=== PATIENT | female | born 1970 | race Caucasian/White ===

== ENCOUNTER 2018-03-01 15:39 | Emergency (ER) | payer OTHER ==
[~2018-03-01] VITALS: Ht 175.3 cm; Wt 95.0 kg
[2018-03-01 15:49] VITALS: BP 121/74
[2018-03-01] MEDS ORDERED: ALBUTEROL/IPRATROPIUM 2.5MG/0.5MG, 3 ML NPPB SCH (16:00)
[2018-03-01] MEDS ORDERED: ALBUTEROL SULFATE 2.5MG/0.5ML ONE (16:01)
[2018-03-01] MEDS ORDERED: ALBUTEROL/IPRATROPIUM 2.5MG/0.5MG, 3 ML ONE (16:01)
[2018-03-01] MEDS ORDERED: ALBUTEROL SULFATE 2.5 MG/3 ML NPPB ONE (17:00)
[2018-03-01] MEDS ORDERED: ALBUTEROL/IPRATROPIUM 2.5MG/0.5MG, 3 ML NEB ONE (17:00)
== END 2018-03-01 17:11 | disposition home or self-care (01) ==
LOC: ED 16:00
DX: J45.41 Moderate persistent asthma with (acute) exacerbation (principal)
CPT/HCPCS: 71046; 94640; 99284; J7512; J7613; J7620

== ENCOUNTER 2018-05-11 21:54 | Emergency (ER) | payer OTHER ==
[~2018-05-11] VITALS: Ht 177.8 cm; Wt 90.5 kg
[2018-05-11] MEDS ORDERED: METHOCARBAMOL 750 MG TABLET ONE (22:44)
[2018-05-11] MEDS ORDERED: KETOROLAC 30 MG/1 ML ONE (22:44)
[2018-05-11] MEDS ORDERED: METHOCARBAMOL 750 MG TABLET PO ONE (23:00)
[2018-05-11] MEDS ORDERED: KETOROLAC 30 MG/1 ML IM ONE (23:00)
[2018-05-11 23:13] VITALS: BP 110/74
== END 2018-05-11 23:15 | disposition home or self-care (01) ==
LOC: ED 22:30
DX: M54.5 Low back pain (principal); G89.29 Other chronic pain; J45.909 Unspecified asthma, uncomplicated; Z87.891 Personal history of nicotine dependence; Z98.51 Tubal ligation status
CPT/HCPCS: 96372; 99283; J1885

== ENCOUNTER 2018-06-22 19:21 | Emergency (ER) | payer OTHER ==
[~2018-06-22] VITALS: Ht 177.8 cm; Wt 88.0 kg
[2018-06-22 19:24] VITALS: BP 116/61
[2018-06-22] MEDS ORDERED: ALBUTEROL/IPRATROPIUM 2.5MG/0.5MG, 3 ML NPPB ONE (19:30)
== END 2018-06-22 20:35 | disposition home or self-care (01) ==
LOC: ED 20:29
DX: J45.41 Moderate persistent asthma with (acute) exacerbation (principal); F17.200 Nicotine dependence, unspecified, uncomplicated
CPT/HCPCS: 71046; 94640; 99284; J7620

== ENCOUNTER 2018-07-31 11:08 | Emergency (ER) | payer SELFPAY ==
[~2018-07-31] VITALS: Ht 177.8 cm; Wt 83.9 kg
[2018-07-31] MEDS ORDERED: ALBUTEROL/IPRATROPIUM 2.5MG/0.5MG, 3 ML ONE ×2 (12:09→12:37)
[2018-07-31] MEDS: ALBUTEROL/IPRATROPIUM 2.5MG/0.5MG, 3 ML NPPB SCH ×2 (12:12→12:39)
[2018-07-31 13:06] VITALS: BP 118/70
== END 2018-07-31 13:24 | disposition home or self-care (01) ==
LOC: ED 11:44
DX: J45.41 Moderate persistent asthma with (acute) exacerbation (principal)
CPT/HCPCS: 71045; 93005; 94640; 99284; J7512; J7620

== ENCOUNTER 2018-09-01 08:13 | Emergency (ER) | payer OTHER ==
[~2018-09-01] VITALS: Ht 177.8 cm; Wt 87.6 kg
--- NOTE | 2018-09-01 08:18 | NUR ---
HERMILA RN: PT IN RESTROOM AT THIS TIME. NIL.
--- NOTE | 2018-09-01 08:24 | NUR ---
LOCKSTITCH TUNNEL ELASTIC OPERATOR: MILLWRIGHT HELPER TO CALL RT FOR PT. ERP NOTIFIED OF PT WHEEZING AND VS.
--- NOTE | 2018-09-01 08:30 | NUR ---
PT C/O COUGHING AND WHEEZING. STATES SHE IS OUT OF SINGULAIR AND HER MEDICATION FOR NEBULIZER MACHINE. PT IS ON ALL MONITORS WITH AUDIBLE ALARMS. O2 SAT IS 95 % ON RA AT THIS TIME.
[2018-09-01] MEDS ORDERED: ALBUTEROL/IPRATROPIUM 2.5MG/0.5MG, 3 ML NPPB SCH (09:00)
[2018-09-01] MEDS ORDERED: ALBUTEROL/IPRATROPIUM 2.5MG/0.5MG, 3 ML ONE (09:04)
[2018-09-01 09:19] LABS: BASOPHILS # (AUTO) 0.08 x10^3/uL (0-0.1); BASOPHILS % (AUTO) 2 % (0-1); EOSINOPHILS % (AUTO) 10 % (1-7); LYMPHOCYTES # (AUTO) 1.66 x10^3/uL (1-3.4); LYMPHOCYTES % (AUTO) 33 % (22-44); MD NO; MEAN CORPUSCULAR HEMOGLOBIN 25.4 pg (27.0-34.8); MEAN CORPUSCULAR HGB CONC 31.9 g/dL (32.4-35.8); MEAN CORPUSCULAR VOLUME 79.7 fL (80-100); MEAN PLATELET VOLUME 9.1 fL (7.4-10.4); MONOCYTES # (AUTO) 0.49 x10^3/uL (0.2-0.8); MONOCYTES % (AUTO) 10 % (2-9); NEUTROPHILS # (AUTO) 2.35 x10^3/uL (1.8-6.8); NEUTROPHILS % (AUTO) 46 % (42-75); PLATELET COUNT 329 x10^3/uL (130-400); RED BLOOD COUNT 4.48 x10^6/uL (3.82-5.3); RED CELL DISTRIBUTION WIDTH 18.5 % (9.6-15.2)
[2018-09-01 09:29] LABS: ALBUMIN 3.8 g/dL (3.4-5.0); ANION GAP 8 mmol/L (5-15); CALCIUM 8.5 mg/dL (8.5-10.1); CHLORIDE 111 mmol/L (98-107)
[2018-09-01 09:36] LABS: CREATININE 0.61 mg/dL (0.55-1.02)
[2018-09-01] MEDS ORDERED: ALBU18HF INH (09:54)
[2018-09-01 10:06] VITALS: BP 109/76
--- NOTE | 2018-09-01 10:06 | NUR ---
VSS. WAITING FOR DISPOSITION BY . PT UPDATED ON POC.
== END 2018-09-01 11:15 | disposition home or self-care (01) ==
LOC: ED 09:19
DX: J45.41 Moderate persistent asthma with (acute) exacerbation (principal); R06.00 Dyspnea, unspecified
CPT/HCPCS: 36415; 71046; 80048; 82040; 83880; 85025; 93005; 94640; 99284; J7512; J7620

== ENCOUNTER 2018-09-23 17:24 | Emergency (ER) | payer OTHER ==
[~2018-09-23] VITALS: Ht 175.3 cm; Wt 85.3 kg
[~2018-09-23 17:24] MED LIST: ALBU18HF INH
--- NOTE | 2018-09-23 17:32 | NUR ---
LUNCH RN: PT BIB EMS FOR INCREASED WOB. PT REPORTS SHE HAS BEEN USING HER NEBULIZER MUCH MORE OFTEN AT HOME AND STILL CONTINUETO GET WORSE. PT REPORTS SHE HAS HAD A PRODUCTIVE COUGH FOR 1 MONTH. PT WAS GIVEN 2 DUO NEBS AND 2 ALBUTEROL TREATMENTS. PT REPORTS SHE DID 3 PRIOR TO THE ARRIVAL OF EMS. PT WAS FOUND TO BE SPEAKING IN BROKEN SENTANCES AND ANXIOUS PER EMS. PT CONNECTED TO ALL MONITORS AND CALL LIGHT IN REACH. RA SAT ABOVE 90% WITH NO INCREASED WOB. EXPIRATORY WHEEZING AND DIMINSHED BREATH SOUNDS APPRECIATED THROUGHOUT LUNGS. AWAITING FURTHER ORDERS.
--- NOTE | 2018-09-23 17:47 | NUR ---
PT MEDICATED PER OCT. RT TREATMENT COMPLETE. LABS DRAWN. CALL LIGHT WITHIN REACH. NO NEEDS AT THIS TIME. AWAITING RESULTS.
[2018-09-23] MEDS ORDERED: ALBUTEROL/IPRATROPIUM 2.5MG/0.5MG, 3 ML ONE (17:56)
[2018-09-23 18:00] LABS: BASOPHILS # (AUTO) 0.07 x10^3/uL (0-0.1); BASOPHILS % (AUTO) 2 % (0-1); EOSINOPHILS # (AUTO) 0.73 x10^3/uL (0-0.4); EOSINOPHILS % (AUTO) 15 % (1-7); LYMPHOCYTES % (AUTO) 28 % (22-44); MD NO; MEAN CORPUSCULAR HEMOGLOBIN 25.8 pg (27.0-34.8); MEAN CORPUSCULAR HGB CONC 32.2 g/dL (32.4-35.8); MEAN PLATELET VOLUME 9.2 fL (7.4-10.4); MONOCYTES % (AUTO) 6 % (2-9); NEUTROPHILS # (AUTO) 2.53 x10^3/uL (1.8-6.8); NEUTROPHILS % (AUTO) 50 % (42-75); PLATELET COUNT 300 x10^3/uL (130-400); RED BLOOD COUNT 4.63 x10^6/uL (3.82-5.3); RED CELL DISTRIBUTION WIDTH 18.6 % (9.6-15.2)
[2018-09-23] MEDS ORDERED: ALBUTEROL/IPRATROPIUM 2.5MG/0.5MG, 3 ML NPPB SCH (18:00)
[2018-09-23 18:06] LABS: ALBUMIN 3.9 g/dL (3.4-5.0); ANION GAP 5 mmol/L (5-15); CALCIUM 8.8 mg/dL (8.5-10.1); CHLORIDE 109 mmol/L (98-107); CREATININE 0.79 mg/dL (0.55-1.02)
[2018-09-23 18:13] VITALS: BP 123/76
--- NOTE | 2018-09-23 18:13 | NUR ---
PT RESTING IN ROOM. NO NEEDS AT THIS TIME. VSS. AWAITING RESULTS.
--- NOTE | 2018-09-23 18:14 | NUR ---
ALL RESULTS BACK AT THIS TIME. CHART UP FOR RECHECK.
[2018-09-23] MEDS ORDERED: BENZONATATE 100 MG CAPSULE ONE (18:18)
--- NOTE | 2018-09-23 19:13 | NUR ---
PT BECAME VERY UPSET WHEN SHE WAS NOT PROVIDED WITH REQUESTED MEDICATION, PHENERGAN WITH CODEINE. PT WAS OFFERED TESSALON FOR HER COUGH, BUT REFUSED THE MEDICATION. MD WAS NOTIFIED OF PT REQUEST AND THEN PT WAS DISCHARGED. WHEN THIS RN ENTERED PTS ROOM TO GIVE DISCHARGE PAPERWORK, PT BECAME VERY LOUD, SHOUTING THAT THIS HOSPITAL CAN'T DO ANYTHING FOR HER AND THAT SHE WILL RETURN IN A FEW HOURS BECAUSE SHE STILL CAN'T BREATHE. PT BEGAN TO HAVE EXAGGERATED, FORCED COUGH WHILE SPEAKING WITH THIS RN. SOON THIS RN WOULD LEAVE ROOM, COUGH WOULD SUBSIDE. ALTHOUGH PT WAS STATING THAT SHE COULDN'T BREATHE, PT WAS SATURATING GREATER THAN 93% ON RA PRIOR TO THIS EVENT. SHE WAS ALSO DISCUSSING CARE WITH 3 FRIENDS AT BEDSIDE AND SHOUTING IN COMPLETE SENTENCES WITHOUT COUGHING. PT CONTINUED TO SHOUT AND HAVE EXAGGERATED COUGH SHE WAS BEING ESCORTED TO DC DESK BY MYSELF AND ANOTHER COMMODITY BROKER.
== END 2018-09-23 18:57 | disposition home or self-care (01) ==
LOC: ED 18:48
DX: J45.21 Mild intermittent asthma with (acute) exacerbation (principal)
CPT/HCPCS: 36415; 71046; 80048; 82040; 85025; 93005; 99284; J7512

== ENCOUNTER 2018-10-17 09:39 | Emergency (ER) | payer OTHER ==
[~2018-10-17] VITALS: Ht 177.8 cm; Wt 88.7 kg
--- NOTE | 2018-10-17 10:10 | NUR ---
CARLOS RN: PT WALKED BACK FROM LOBBY TO ROOM. PT STEADY UPON AMBULATION. NAD NOTED. SKIN PWD. RESP EVEN AND EQAUL. PT HAS AUDIBLE WHEEZING BUT IS NOT USING ACCESSORY MUSCLES TO BREATHE. OCCAISIONAL DRY COUGH NOTED. PT ABLE TO SPEAK IN FULL 5-7 WORD SENTENCES W/O DIFFICULTY. PT REPORTS HX OF ASTHMA AND COUGH/INCREASING SOB X 2 DAYS. PT HAS BEEN OUT OF HER NEB TREATMENTS AT HOME. PT ON CONT BP AND O2 MONITORS. CALL LIGHT WITHIN REACH.
--- NOTE | 2018-10-17 10:22 | NUR ---
TO XR PER CHARLETTE
[2018-10-17] MEDS ORDERED: ALBUTEROL/IPRATROPIUM 2.5MG/0.5MG, 3 ML ONE (10:24)
[2018-10-17] MEDS ORDERED: ALBUTEROL/IPRATROPIUM 2.5MG/0.5MG, 3 ML NPPB ONE (10:30)
--- NOTE | 2018-10-17 10:38 | NUR ---
PREDNISONE GIVEN PER EMAR. PT SITTING ON BED, A&OX4, RESP EVEN & UNLABORED, NO COUGH NOTED. PT REPORTS IMPROVEMENT IN BREATHING POST-NEB TX. SIDE RAILS UP X2, CALL LIGHT W/IN REACH. VS MONITORING CONTINUES.
[2018-10-17 10:59] VITALS: BP 119/74
== END 2018-10-17 11:01 | disposition home or self-care (01) ==
LOC: ED 10:17
DX: J45.51 Severe persistent asthma with (acute) exacerbation (principal); Z87.891 Personal history of nicotine dependence
CPT/HCPCS: 71046; 94640; 99283; J7512

== ENCOUNTER 2018-11-24 07:03 | Emergency (ER) | payer SELFPAY ==
[~2018-11-24] VITALS: Ht 177.8 cm; Wt 87.7 kg
--- NOTE | 2018-11-24 07:07 | NUR ---
NO ANSWER IN LOBBY.
[2018-11-24] MEDS ORDERED: ALBUTEROL SULFATE 2.5 MG/3 ML ONE (07:21)
--- NOTE | 2018-11-24 07:29 | NUR ---
RT at bedside for breathing treatment.
[2018-11-24] MEDS ORDERED: ALBUTEROL SULFATE 2.5 MG/3 ML NPPB ONE (07:30)
[2018-11-24] MEDS ORDERED: ALBUTEROL/IPRATROPIUM 2.5MG/0.5MG, 3 ML NPPB SCH (07:30)
--- NOTE | 2018-11-24 07:54 | NUR ---
Pt states she feels "a lot better" after breating treatment. Awaiting RAD results.
[2018-11-24] MEDS ORDERED: ALBUTEROL SULFATE 2.5 MG/3 ML NPPB PRN (08:00)
[2018-11-24 08:56] VITALS: BP 121/72
--- NOTE | 2018-11-24 08:57 | NUR ---
Patient/Caregiver given discharge instructions and they have confirmed that they understand the instructions. Patient ambulatory with steady gait. pt left with all personal blongings.
== END 2018-11-24 09:05 | disposition home or self-care (01) ==
LOC: ED 08:53
DX: J45.41 Moderate persistent asthma with (acute) exacerbation (principal); F17.200 Nicotine dependence, unspecified, uncomplicated
CPT/HCPCS: 71046; 94640; 99283; J7512; J7613

== ENCOUNTER 2018-12-05 08:40 | Emergency (ER) | payer OTHER ==
[~2018-12-05] VITALS: Ht 177.8 cm; Wt 88.7 kg
[2018-12-05] MEDS ORDERED: KETOROLAC 30 MG/1 ML IM ONE (09:00)
[2018-12-05] MEDS ORDERED: ONDANSETRON ODT 4 MG PO ONE (09:00)
[2018-12-05] MEDS ORDERED: KETOROLAC 30 MG/1 ML ONE (09:11)
[2018-12-05] MEDS ORDERED: ONDANSETRON ODT 4 MG ONE (09:11)
[2018-12-05 09:12] LABS: MICROSCOPIC NOT IND
--- NOTE | 2018-12-05 09:15 | NUR ---
PT. IS A & O X 4 WITH C/O RIGHT FLANK PAIN THAT STARTED TODAY. PT. STATES SHE IS NAUSEATED WELL. PT. WAS MEDICATED FOR PAIN AND NAUSEA ORDERED. UA SENT. PT. IS PINK,WARM AND DRY. LUNGS ARE CTA. MM ARE PINK AND MOIST WITH PULSES +2 THROUGHOUT. PT. IS RESTING WITH THE HOB ELEVATED GREATER THAN 30 DEGREES. SIDERAILS ARE UP X 2 WITH THE CALL LIGHT IN PLACE.
[2018-12-05 09:19] LABS: CULTURE INDICATED? NO
[2018-12-05 09:28] LABS: BASOPHILS # (AUTO) 0.08 x10^3/uL (0-0.1); BASOPHILS % (AUTO) 2 % (0-1); EOSINOPHILS # (AUTO) 0.37 x10^3/uL (0-0.4); EOSINOPHILS % (AUTO) 7 % (1-7); LYMPHOCYTES # (AUTO) 1.53 x10^3/uL (1-3.4); LYMPHOCYTES % (AUTO) 27 % (22-44); MD NO; MEAN CORPUSCULAR HEMOGLOBIN 24.3 pg (27.0-34.8); MEAN CORPUSCULAR HGB CONC 31.2 g/dL (32.4-35.8); MEAN CORPUSCULAR VOLUME 77.9 fL (80-100); MEAN PLATELET VOLUME 9.2 fL (7.4-10.4); MONOCYTES # (AUTO) 0.42 x10^3/uL (0.2-0.8); MONOCYTES % (AUTO) 8 % (2-9); NEUTROPHILS % (AUTO) 57 % (42-75); PLATELET COUNT 346 x10^3/uL (130-400); RED BLOOD COUNT 4.46 x10^6/uL (3.82-5.3); RED CELL DISTRIBUTION WIDTH 16.5 % (9.6-15.2)
[2018-12-05 09:42] LABS: ALBUMIN 3.8 g/dL (3.4-5.0); ANION GAP 2 mmol/L (5-15); CALCIUM 8.6 mg/dL (8.5-10.1); CHLORIDE 108 mmol/L (98-107); CREATININE 0.64 mg/dL (0.55-1.02)
[2018-12-05 09:57] VITALS: BP 127/62
== END 2018-12-05 10:29 | disposition home or self-care (01) ==
LOC: ED 09:12
DX: S39.012A Strain of muscle, fascia and tendon of lower back, initial encounter (principal); R30.0 Dysuria; R39.15 Urgency of urination; Z87.891 Personal history of nicotine dependence; X58.XXXA Exposure to other specified factors, initial encounter; Y93.89 Activity, other specified; Y92.89 Other specified places as the place of occurrence of the external cause; Y99.8 Other external cause status
CPT/HCPCS: 36415; 80048; 81003; 82040; 84703; 85025; 96372; 99283; J1885; Q0162

== ENCOUNTER 2018-12-18 01:07 | Emergency (ER) | payer SELFPAY ==
[~2018-12-18] VITALS: Ht 177.8 cm; Wt 89.2 kg
[2018-12-18] MEDS ORDERED: ALBUTEROL SULFATE 2.5 MG/3 ML ONE (01:23)
[2018-12-18] MEDS: ALBUTEROL/IPRATROPIUM 2.5MG/0.5MG, 3 ML NPPB SCH (01:28)
[2018-12-18] MEDS ORDERED: SODIUM CHLORIDE FLUSH 10ML SYR IVF ONE (01:30)
[2018-12-18] MEDS ORDERED: methylPREDNISolone SOD SUCC 125 MG/2 ML IVP ONE (01:30)
[2018-12-18] MEDS ORDERED: MAGNESIUM SULFATE PMX 2GM/50ML 50 ML IVPB ONE (01:30)
[2018-12-18 01:38] LABS: BASOPHILS # (AUTO) 0.04 x10^3/uL (0-0.1); BASOPHILS % (AUTO) 1 % (0-1); EOSINOPHILS # (AUTO) 0.45 x10^3/uL (0-0.4); EOSINOPHILS % (AUTO) 8 % (1-7); LYMPHOCYTES # (AUTO) 1.94 x10^3/uL (1-3.4); LYMPHOCYTES % (AUTO) 36 % (22-44); MD NO; MEAN CORPUSCULAR HEMOGLOBIN 25.4 pg (27.0-34.8); MEAN CORPUSCULAR HGB CONC 32.3 g/dL (32.4-35.8); MEAN CORPUSCULAR VOLUME 78.7 fL (80-100); MONOCYTES # (AUTO) 0.32 x10^3/uL (0.2-0.8); MONOCYTES % (AUTO) 6 % (2-9); NEUTROPHILS # (AUTO) 2.71 x10^3/uL (1.8-6.8); NEUTROPHILS % (AUTO) 50 % (42-75); PLATELET COUNT 311 x10^3/uL (130-400); RED BLOOD COUNT 4.25 x10^6/uL (3.82-5.3); RED CELL DISTRIBUTION WIDTH 16.7 % (9.6-15.2)
[2018-12-18] MEDS ORDERED: MAGNESIUM SULFATE PMX 2GM/50ML 50 ML ONE (01:45)
[2018-12-18] MEDS ORDERED: methylPREDNISolone SOD SUCC 125 MG/2 ML ONE (01:45)
[2018-12-18 01:48] LABS: ALBUMIN 3.5 g/dL (3.4-5.0); ANION GAP 5 mmol/L (5-15); CALCIUM 8.3 mg/dL (8.5-10.1); CHLORIDE 113 mmol/L (98-107); CREATININE 0.67 mg/dL (0.55-1.02)
--- NOTE | 2018-12-18 02:07 | NUR ---
PT WATCHING TV IN ROOM. VS STABLE. PULSE OX ON. RESTAURANT CREW MEMBER ON. NSR NOTED. CALL LIGHT IN PLACE. WILL CONTINUE TO MONITOR.
--- NOTE | 2018-12-18 02:17 | NUR ---
DR AVALOS HAS UPDATED PATIENT.
[2018-12-18 02:42] VITALS: BP 115/67
--- NOTE | 2018-12-18 02:59 | NUR ---
MAG STOPED PER DR AVALOS. PT READY FOR DC
[2018-12-19] MEDS ORDERED: MONT10TA6 PO (05:56)
== END 2018-12-18 03:10 | disposition home or self-care (01) ==
LOC: ED 01:52
DX: J45.41 Moderate persistent asthma with (acute) exacerbation (principal)
CPT/HCPCS: 36415; 71045; 80048; 82040; 85025; 93005; 94640; 96365; 96375; 99284; J2930; J3475; J7620

== ENCOUNTER 2018-12-19 03:50 | Inpatient (IN) | payer OTHER ==
[~2018-12-19] VITALS: Ht 177.8 cm; Wt 85.5 kg
[2018-12-19] MEDS ORDERED: ALBUTEROL/IPRATROPIUM 2.5MG/0.5MG, 3 ML ONE (04:06)
[2018-12-19] MEDS ORDERED: methylPREDNISolone SOD SUCC 125 MG/2 ML ONE (04:08)
[2018-12-19] MEDS: ALBUTEROL/IPRATROPIUM 2.5MG/0.5MG, 3 ML NPPB SCH ×5 (04:13→19:14)
--- NOTE | 2018-12-19 04:26 | NUR ---
PT IN GOWN IN [facility]. PT ATTACHED TO POST PRODUCTION ASSISTANT AND VS MACHINES. VSS AT THIS TIME. RT AT BEDSIDE WITH PT FOR BREATHING TREATMENT. IV ACCESS ESTABLISHED. LABS DRAWN AND SENT TO LAB. PT EDUCATED ON ER PROCESS AND POC AND VERBALIZES UNDERSTANDING. CALL LIGHT IS WITHIN REACH AT THIS TIME.
[2018-12-19] MEDS ORDERED: methylPREDNISolone SOD SUCC 125 MG/2 ML IVP ONE (04:30)
[2018-12-19] MEDS ORDERED: ALBUTEROL/IPRATROPIUM 2.5MG/0.5MG, 3 ML NPPB PRN ×2 (04:30→05:30)
[2018-12-19] MEDS ORDERED: SODIUM CHLORIDE FLUSH 10ML SYR IVF ONE (04:30)
--- NOTE | 2018-12-19 04:32 | NUR ---
PT MEDICATED PER MAR.
--- NOTE | 2018-12-19 04:47 | NUR ---
PT RESTING COMFORTABLY IN [place] AT THIS TIME. EXTRA WARM BLANKET PROVIDED. PT VSS AND UDPATED IN EMR.
[2018-12-19 04:56] LABS: BASOPHILS # (AUTO) 0.04 x10^3/uL (0-0.1); BASOPHILS % (AUTO) 1 % (0-1); EOSINOPHILS # (AUTO) 0.05 x10^3/uL (0-0.4); EOSINOPHILS % (AUTO) 1 % (1-7); LYMPHOCYTES % (AUTO) 26 % (22-44); MD NO; MEAN CORPUSCULAR HEMOGLOBIN 25.7 pg (27.0-34.8); MEAN CORPUSCULAR HGB CONC 32.8 g/dL (32.4-35.8); MEAN CORPUSCULAR VOLUME 78.5 fL (80-100); MEAN PLATELET VOLUME 9.3 fL (7.4-10.4); MONOCYTES # (AUTO) 0.54 x10^3/uL (0.2-0.8); MONOCYTES % (AUTO) 6 % (2-9); NEUTROPHILS # (AUTO) 5.71 x10^3/uL (1.8-6.8); NEUTROPHILS % (AUTO) 67 % (42-75); PLATELET COUNT 334 x10^3/uL (130-400); RED BLOOD COUNT 4.35 x10^6/uL (3.82-5.3); RED CELL DISTRIBUTION WIDTH 17.1 % (9.6-15.2)
[2018-12-19] MEDS ORDERED: hydrALAzine 20 MG/ML, 1ML IVPush PRN (05:00)
[2018-12-19 05:04] LABS: ALBUMIN 4.1 g/dL (3.4-5.0); ANION GAP 5 mmol/L (5-15); CALCIUM 8.4 mg/dL (8.5-10.1); CHLORIDE 109 mmol/L (98-107)
[2018-12-19 05:12] LABS: CREATININE 0.81 mg/dL (0.55-1.02); TROPONIN I < 0.015 ng/mL (0.000-0.045)
[2018-12-19 05:31] LABS: % IRON SATURATION 4 % (20-55); IRON LEVEL 19 mcg/dL (50-170); TOTAL IRON BINDING CAPACITY 462 mcg/dL (250-450)
--- NOTE | 2018-12-19 05:34 | NUR ---
report of pt to caro moscoso. all questions answers.
[2018-12-19 05:42] VITALS: BP 116/70
[2018-12-19] MEDS: ENOXAPARIN 40 MG/0.4 ML SQ SCH (05:52)
[2018-12-19] MEDS ORDERED: MONT10TA6 PO (05:56)
[2018-12-19 06:45] VITALS: BP 123/67
[2018-12-19] MEDS: FLUTICASONE NASAL SPRAY 16GM NAS SCH ×2 (10:00→22:43)
[2018-12-19] MEDS ORDERED: ACETAMINOPHEN 325 MG TABLET ONE (10:30)
[2018-12-19] MEDS: CETIRIZINE 10 MG TABLET PO SCH (10:31)
[2018-12-19] MEDS: GUAIFENESIN 200 MG TABLET PO SCH ×3 (10:31→21:16)
[2018-12-19] MEDS: FAMOTIDINE 20 MG TABLET PO SCH ×2 (10:31→21:16)
[2018-12-19] MEDS: IRON SUCROSE COMPLEX 100MG/5ML IV SCH (10:32)
[2018-12-19] MEDS: methylPREDNISolone SOD SUCC 125 MG/2 ML IVPush SCH ×3 (10:32→21:16)
[2018-12-19 12:34] VITALS: BP 128/62
[2018-12-19] MEDS: ACETAMINOPHEN 325 MG TABLET PO PRN ×3 (12:47→21:16)
[2018-12-19] MEDS: GUAIFENESIN/DM 200-20MG, 10ML UDC PO PRN ×2 (15:23→21:23)
[2018-12-19] MEDS ORDERED: DOCUSATE 50 MG/5 ML, 10ML UDC PO PRN (15:30)
[2018-12-19] MEDS: ASCORBIC ACID 500 MG TABLET PO SCH (16:19)
[2018-12-19 19:00] VITALS: BP 115/62
[2018-12-20 01:52] VITALS: BP 123/71
[2018-12-20] MEDS: ENOXAPARIN 40 MG/0.4 ML SQ SCH (04:44)
[2018-12-20] MEDS: GUAIFENESIN 200 MG TABLET PO SCH ×4 (04:44→21:35)
[2018-12-20] MEDS: methylPREDNISolone SOD SUCC 125 MG/2 ML IVPush SCH ×3 (04:44→21:35)
[2018-12-20 05:36] LABS: BASOPHILS % (AUTO) 0 % (0-1); EOSINOPHILS % (AUTO) 0 % (1-7); LYMPHOCYTES # (AUTO) 0.72 x10^3/uL (1-3.4); LYMPHOCYTES % (AUTO) 6 % (22-44); MD NO; MEAN CORPUSCULAR HEMOGLOBIN 25.6 pg (27.0-34.8); MEAN CORPUSCULAR HGB CONC 32.6 g/dL (32.4-35.8); MEAN CORPUSCULAR VOLUME 78.3 fL (80-100); MEAN PLATELET VOLUME 9.4 fL (7.4-10.4); MONOCYTES # (AUTO) 0.28 x10^3/uL (0.2-0.8); MONOCYTES % (AUTO) 2 % (2-9); NEUTROPHILS # (AUTO) 11.27 x10^3/uL (1.8-6.8); NEUTROPHILS % (AUTO) 92 % (42-75); PLATELET COUNT 299 x10^3/uL (130-400); RED BLOOD COUNT 4.04 x10^6/uL (3.82-5.3); RED CELL DISTRIBUTION WIDTH 16.9 % (9.6-15.2)
[2018-12-20 05:39] LABS: CHLORIDE 108 mmol/L (98-107)
[2018-12-20 06:14] LABS: ALANINE AMINOTRANSFERASE 18 U/L (12-78); ALBUMIN 3.6 g/dL (3.4-5.0); ALKALINE PHOSPHATASE 63 U/L (45-117); ANION GAP 9 mmol/L (5-15); BILIRUBIN,TOTAL 0.3 mg/dL (0.2-1.0); CALCIUM 9.1 mg/dL (8.5-10.1); CREATININE 0.69 mg/dL (0.55-1.02); TOTAL PROTEIN 7.1 g/dL (6.4-8.2)
[2018-12-20] MEDS: ALBUTEROL/IPRATROPIUM 2.5MG/0.5MG, 3 ML NPPB SCH ×3 (07:00→14:35)
[2018-12-20 08:12] VITALS: BP 157/65
[2018-12-20] MEDS: ASCORBIC ACID 500 MG TABLET PO SCH ×2 (08:40→17:53)
[2018-12-20] MEDS: FAMOTIDINE 20 MG TABLET PO SCH ×2 (08:40→21:35)
[2018-12-20] MEDS: FLUTICASONE NASAL SPRAY 16GM NAS SCH ×2 (08:40→21:35)
[2018-12-20] MEDS: CETIRIZINE 10 MG TABLET PO SCH (08:40)
[2018-12-20] MEDS: IRON SUCROSE COMPLEX 100MG/5ML IV SCH (08:40)
[2018-12-20] MEDS: ACETAMINOPHEN 325 MG TABLET PO PRN ×2 (10:57→21:44)
[2018-12-20 12:54] VITALS: BP 146/81
[2018-12-20 20:33] VITALS: BP 134/78
[2018-12-21 01:40] VITALS: BP 142/88
[2018-12-21] MEDS: ENOXAPARIN 40 MG/0.4 ML SQ SCH (05:48)
[2018-12-21] MEDS: GUAIFENESIN 200 MG TABLET PO SCH ×2 (05:48→09:53)
[2018-12-21 06:43] VITALS: BP 138/78
[2018-12-21] MEDS ORDERED: BUDESONIDE 0.5 MG/2 ML INHA INH SCH (07:00)
[2018-12-21] MEDS: IRON SUCROSE COMPLEX 100MG/5ML IV SCH (09:52)
[2018-12-21] MEDS: methylPREDNISolone SOD SUCC 125 MG/2 ML IVPush SCH (09:52)
[2018-12-21] MEDS: FAMOTIDINE 20 MG TABLET PO SCH (09:52)
[2018-12-21] MEDS: FLUTICASONE NASAL SPRAY 16GM NAS SCH (09:53)
[2018-12-21] MEDS: CETIRIZINE 10 MG TABLET PO SCH (09:53)
[2018-12-21] MEDS: ASCORBIC ACID 500 MG TABLET PO SCH (09:53)
[2018-12-21] MEDS ORDERED: GUAI200T3 PO (11:08)
[2018-12-21] MEDS ORDERED: FAMO20TA7 PO (11:08)
[2018-12-21] MEDS ORDERED: PRED20TA PO (11:08)
[2018-12-21] MEDS ORDERED: ALBU18HF INH (11:08)
[2018-12-21] MEDS ORDERED: FERR-51 PO (11:08)
[2018-12-21] MEDS ORDERED: DOCU50LI12 PO (11:08)
[2018-12-21] MEDS ORDERED: ASCO500T6 PO (11:08)
[2018-12-21] MEDS ORDERED: FLUT16SP NAS (11:08)
[2018-12-21] MEDS ORDERED: CETI10TA18 PO (11:08)
[2018-12-21] MEDS ORDERED: FLUT1AER7 INH (11:08)
[2018-12-21 12:51] VITALS: BP 132/76
[2018-12-21] MEDS ORDERED: ALBUTEROL SULFATE 2.5 MG/3 ML NPPB SCH (21:00)
== END 2018-12-21 16:09 | disposition home or self-care (01) | DRG 189 ==
LOC: ED 04:48 → EDIP 04:50 → ED 05:08 → 4WST 05:37 → DCLOUNGE 12-21 15:41
PROVIDERS: ADMIT Family Medicine; ATTEND Family Medicine
DX: J96.00 Acute respiratory failure, unspecified whether with hypoxia or hypercapnia (principal); J45.902 Unspecified asthma with status asthmaticus; D50.9 Iron deficiency anemia, unspecified; D53.9 Nutritional anemia, unspecified; D72.829 Elevated white blood cell count, unspecified; K21.9 Gastro-esophageal reflux disease without esophagitis; Z79.01 Long term (current) use of anticoagulants; Z91.19 Patient's noncompliance with other medical treatment and regimen; Z78.0 Asymptomatic menopausal state; Z98.51 Tubal ligation status
CPT/HCPCS: 36415; 99285; J7620; J7626; 71045; 80048; 80053; 82040; 83540; 83550; 83880; 84443; 84484; 85025; 93005; 94640; 96374; G0378; J1650; J1756; J2930

== ENCOUNTER 2019-01-12 02:00 | Emergency (ER) | payer SELFPAY ==
[~2019-01-12] VITALS: Ht 177.8 cm; Wt 94.0 kg
[~2019-01-12 02:00] MED LIST changes: +ASCO500T6 PO; +CETI10TA18 PO; +DOCU50LI12 PO; +FAMO20TA7 PO; +FERR-51 PO; +FLUT16SP NAS; +FLUT1AER7 INH; +GUAI200T3 PO; +MONT10TA6 PO; +PRED20TA PO
[2019-01-12] MEDS ORDERED: ALBUTEROL/IPRATROPIUM 2.5MG/0.5MG, 3 ML ONE (02:16)
--- NOTE | 2019-01-12 02:16 | NUR ---
FIRST CONTACT WITH PT. PT CAME IN TONIGHT FOR SOB. PT WITH HISTORY OF ASTHMA. SEEN HERE BEFORE FOR SAME. PT AUDIBLY WHEEZY IN TRIAGE. PT'S AOX4. RESPS EVEN AND UNLABORED. BP/SPO2 MONITORS IN PLACE. CALL LIGHT WITHIN REACH.
[2019-01-12] MEDS: ALBUTEROL/IPRATROPIUM 2.5MG/0.5MG, 3 ML NPPB SCH ×2 (02:21→02:27)
--- NOTE | 2019-01-12 02:25 | NUR ---
PT MEDICATED PER EMAR. PT TOLERATED WELL. RT AT BEDSIDE NOW.
[2019-01-12] MEDS ORDERED: ALBUTEROL/IPRATROPIUM 2.5MG/0.5MG, 3 ML NPPB PRN (02:30)
--- NOTE | 2019-01-12 03:26 | NUR ---
pt resting in [facility]. resps even and unlabored. all monitors in place. call light within reach.
[2019-01-12 04:04] VITALS: BP 121/74
--- NOTE | 2019-01-12 04:05 | NUR ---
pt given dc instructions and scripts. pt educated regarding dc medications. pt'a sox4. resps even and unlabored. pt amb to dc with steady gait. no acute distress at dc.
== END 2019-01-12 04:06 | disposition home or self-care (01) ==
LOC: ED 02:40
DX: J45.51 Severe persistent asthma with (acute) exacerbation (principal)
CPT/HCPCS: 93005; 94640; 99284; J7512; J7620

== ENCOUNTER 2019-01-16 19:24 | Emergency (ER) | payer SELFPAY ==
[~2019-01-16] VITALS: Ht 177.8 cm; Wt 93.6 kg
[2019-01-16 19:25] VITALS: BP 151/69
[2019-01-16 20:18] LABS: MEAN CORPUSCULAR HEMOGLOBIN 27.7 pg (27.0-34.8); MEAN CORPUSCULAR HGB CONC 32.1 g/dL (32.4-35.8); MEAN CORPUSCULAR VOLUME 86.2 fL (80-100); MEAN PLATELET VOLUME 8.1 fL (7.4-10.4); PLATELET COUNT 350 x10^3/uL (130-400); RED BLOOD COUNT 4.31 x10^6/uL (3.82-5.3); RED CELL DISTRIBUTION WIDTH 24.3 % (9.6-15.2)
[2019-01-16 20:28] LABS: ALBUMIN 3.6 g/dL (3.4-5.0); ANION GAP 8 mmol/L (5-15); CALCIUM 8.6 mg/dL (8.5-10.1); CHLORIDE 108 mmol/L (98-107); CREATININE 0.92 mg/dL (0.55-1.02)
[2019-01-16] MEDS ORDERED: ALBUTEROL/IPRATROPIUM 2.5MG/0.5MG, 3 ML NPPB ONE (20:30)
[2019-01-16 20:49] LABS: MD YES
[2019-01-16 20:56] LABS: LYMPH#(MANUAL) 1.73 x10^3/uL (1-3.4); LYMPHS% (MANUAL) 18 % (22-44); METAMYELOCYTES% (MANUAL) 1 % (0-1); MONOS#(MANUAL) 0.38 x10^3/uL (0.3-2.7); MONOS% (MANUAL) 4 % (2-9); SEG#(MANUAL) 7.39 x10^3/uL (1.8-6.8); SEGS% (MANUAL) 77 % (42-75)
[2019-01-16 20:57] LABS: ANISOCYTOSIS 2+; HYPOCHROMIA 1+
[2019-01-16 20:58] LABS: <PLATELET ESTIMATE> ADEQUATE; <PLT MORPHOLOGY> NORMAL PLT MORPH
--- NOTE | 2019-01-16 21:19 | NUR ---
after neb treatment patient reports "i feel much better." no audible wheezing noted. normal sentences. no increased wob w/ activity
== END 2019-01-16 21:29 | disposition home or self-care (01) ==
LOC: ED 21:28
DX: J45.41 Moderate persistent asthma with (acute) exacerbation (principal); E24.9 Cushing's syndrome, unspecified
CPT/HCPCS: 36415; 80048; 82040; 85025; 87081; 87880; 94640; 99283; J7620

== ENCOUNTER 2019-01-26 07:33 | Emergency (ER) | payer SELFPAY ==
[~2019-01-26] VITALS: Ht 177.8 cm; Wt 93.6 kg
[~2019-01-26 07:33] MED LIST changes: -DOCU50LI12 PO; +DOCU50LI26 PO; -FLUT16SP NAS; +FLUT16SP24 NAS
--- NOTE | 2019-01-26 07:45 | NUR ---
Pt resting on gurney. JOE
[2019-01-26] MEDS ORDERED: ONDANSETRON ODT 4 MG ONE (07:56)
[2019-01-26] MEDS ORDERED: ONDANSETRON ODT 4 MG PO ONE (08:00)
[2019-01-26 08:41] LABS: MEAN CORPUSCULAR HEMOGLOBIN 27.6 pg (27.0-34.8); MEAN CORPUSCULAR HGB CONC 31.7 g/dL (32.4-35.8); MEAN PLATELET VOLUME 7.8 fL (7.4-10.4); PLATELET COUNT 267 x10^3/uL (130-400); RED BLOOD COUNT 4.58 x10^6/uL (3.82-5.3); RED CELL DISTRIBUTION WIDTH 24.3 % (9.6-15.2)
[2019-01-26 08:46] VITALS: BP 134/86
--- NOTE | 2019-01-26 08:46 | NUR ---
TASK RN: PT RESTING ON CHARLETTE. [place]. VSS. WARM BLANKET PROVIDED. UA COLLECTED, LABELED, AND SENT TO LAB.
[2019-01-26 08:48] LABS: ALBUMIN 3.4 g/dL (3.4-5.0); ANION GAP 4 mmol/L (5-15); CALCIUM 8.6 mg/dL (8.5-10.1); CHLORIDE 111 mmol/L (98-107)
[2019-01-26 08:55] LABS: MICROSCOPIC NOT IND
[2019-01-26 09:05] LABS: BASOPHILS # (AUTO) 0.04 x10^3/uL (0-0.1); BASOPHILS % (AUTO) 1 % (0-1); EOSINOPHILS # (AUTO) 0.11 x10^3/uL (0-0.4); EOSINOPHILS % (AUTO) 2 % (1-7); LYMPHOCYTES % (AUTO) 31 % (22-44); MD SCAN; MONOCYTES # (AUTO) 0.56 x10^3/uL (0.2-0.8); MONOCYTES % (AUTO) 8 % (2-9); NEUTROPHILS # (AUTO) 4.01 x10^3/uL (1.8-6.8); NEUTROPHILS % (AUTO) 59 % (42-75)
== END 2019-01-26 10:33 | disposition home or self-care (01) ==
LOC: ED 08:39
DX: J02.9 Acute pharyngitis, unspecified (principal); J06.9 Acute upper respiratory infection, unspecified; M54.5 Low back pain; R22.0 Localized swelling, mass and lump, head; J45.909 Unspecified asthma, uncomplicated
CPT/HCPCS: 36415; 71046; 80048; 81003; 82040; 85025; 87081; 87880; 99284; Q0162

== ENCOUNTER 2019-07-16 12:04 | Emergency (ER) ==
[~2019-07-16] VITALS: Ht 175.3 cm; Wt 85.5 kg
[~2019-07-16 12:04] MED LIST changes: -GUAI200T3 PO; +GUAI200T37 PO
[2019-07-16 12:22] VITALS: BP 123/79
--- NOTE | 2019-07-16 13:01 | NUR ---
Pt ambulatory to ED room 01 from lobby at this time
--- NOTE | 2019-07-16 13:16 | NUR ---
RECEIVED REPORT FROM ANUP. PT UPRIGHT ON GURNEY AWAKE & COMFORTABLE, RESPONDS APPROP TO STAFF, NAD, COMFORT MEASURES PROVIDED, CALL LIGHT WITHIN REACH.
[2019-07-16] MEDS ORDERED: ALBUTEROL/IPRATROPIUM 2.5MG/0.5MG, 3 ML ONE ×2 (13:20→14:46)
[2019-07-16] MEDS ORDERED: ALBUTEROL/IPRATROPIUM 2.5MG/0.5MG, 3 ML NPPB ONE (13:30)
--- NOTE | 2019-07-16 14:00 | NUR ---
PT REMAINS UPRIGHT ON GURNEY AWAKE & COMFORTABLE, RESPONDS APPROP TO STAFF, NAD, COMFORT MEASURES PROVIDED, CALL LIGHT WITHIN REACH.
--- NOTE | 2019-07-16 14:58 | NUR ---
Patient given discharge instructions and Rx, they have confirmed that they understand the instructions. Patient ambulatory with steady gait.
== END 2019-07-16 15:00 | disposition home or self-care (01) ==
LOC: ED 14:50
DX: J45.41 Moderate persistent asthma with (acute) exacerbation (principal); B34.9 Viral infection, unspecified
CPT/HCPCS: 71046; 94640; 99284; J7512; J7620

== ENCOUNTER 2019-07-21 10:24 | Emergency (ER) | payer SELFPAY ==
[~2019-07-21] VITALS: Ht 175.3 cm; Wt 86.5 kg
--- NOTE | 2019-07-21 10:43 | NUR ---
THIS IS A 48 YO FEMALE WHO PRESENTS TO THE ER C/O INCREASING SOB/COUGHING WITH HX OF ASTHMA. PT HAS OCCAISIONAL COUGH NOTED PER RN. PT REPORTS YELLOW PHLEGM. PT SPEAKIN GIN 3-4 WORD SENTENCES BEFORE BECOMING SHORT OF BREATH. DIMINISHED LUNGS SOUNDS T/O. SKIN PWD. AO X 4. PT ON CONT BP, CARDAIC AND O2 MONITORS. NELSY LOMBARDI HAS BEEN TO SEE PT. AWAITING RT. CALL LIGHT WITHIN REACH. WILL CONT TO MONITOR PT.
[2019-07-21] MEDS ORDERED: ALBUTEROL/IPRATROPIUM 2.5MG/0.5MG, 3 ML ONE (10:47)
--- NOTE | 2019-07-21 10:56 | NUR ---
RT AT BEDSIDE.
[2019-07-21] MEDS ORDERED: ALBUTEROL/IPRATROPIUM 2.5MG/0.5MG, 3 ML NPPB SCH (11:00)
--- NOTE | 2019-07-21 11:49 | NUR ---
PT REPORTS FEELING MUCH BETTER AFTER BREATING TREATMENT. PT'S BREATHING IS MORE CALM AND RELAXED, PT ABLE TO SPEAK IN FULL 5-7 WORD SENTENCES W/O DIFFICULTY. COUGHING APPEARS LESS. PT UP TO RESTROOM, STEADY UPON AMBULATION TO AND FROM [facility]. NO RESP DISTRESS NOTED WITH AMBULATION. PT ON CONT BP, CARDIAC AND O2 MONITORS. PT AWARE WE ARE WAITING ON RECHECK BY ERMD. CALL LIGHT WITHIN REACH. WILL CONT TO MONITOR PT.
--- NOTE | 2019-07-21 12:30 | NUR ---
PT DOZING ON GURNEY. NAD NOTED. SKIN PWD. RESP EVEN AND UNLABORED AT THIS TIME. PT ABLE TO SPEAK EASILY IN 5-7 WORD SENTENCES. SKIN PWD. AO X 4. PT ON CONT BP, CARDIAC AND O2 MONITORS. CALL LIGHT WITHIN REACH. WILL CONT TO MONITOR PT.
[2019-07-21 12:58] VITALS: BP 122/77
== END 2019-07-21 13:00 | disposition home or self-care (01) ==
LOC: ED 11:06
DX: J45.31 Mild persistent asthma with (acute) exacerbation (principal)
CPT/HCPCS: 71046; 93005; 94640; 99283; J7512